=== PATIENT | female | born 1980 | race Caucasian/White ===

== ENCOUNTER → 2018-08-13 12:29 | Outpatient (CLI) | payer OTHER, MEDICAID, SELFPAY ==
--- NOTE | 2018-08-13 12:32 | BI_ITS ---
MAMMOGRAPHY - BILATERAL SCREENING REASON FOR EXAM: Female, 38 years old. Routine annual screening examination. PERTINENT HISTORY: Grandmother with breast cancer. TECHNIQUE: Digital bilateral breast anai (3D mammographic acquisition) in the CC and MLO projections. 2-D mediolateral oblique (MLO) and craniocaudad (CC) views of both breasts were obtained. CAD: Full Field Digital Mammography with Computer Added Detection was performed. COMPARISON: Comparison is made with prior study dated April 17, 2016 and July 31, 2017. FINDINGS: Breast Composition: There are scattered areas of fibroglandular density. There are no dominant masses or suspicious calcifications. Stable asymmetric breast tissue where more breast tissue is seen in the upper outer quadrant of the right breast as compared to the left side. No other significant abnormalities are identified. There has been no significant change since the prior study. BI/SCREENING MAMM (CAD), BILAT IMPRESSION: Stable bilateral screening mammogram. Yearly follow-up mammogram recommended. (A) ASSESSMENT CATEGORY: BIRADS Category 2: Benign. A letter regarding these results will be sent to the patient by the facility within 30 days. Approximately 10% of breast cancers are not detected by mammography. A normal mammogram should not delay biopsy of a clinically suspicious abnormality. [id number] Electronically Signed: Micheal Garner MD at 12:50 EDT Tel [phone], Service support ,
== END ==
PROVIDERS: Family Provider Internal Medicine; PCP Internal Medicine; Visit Provider Obstetrics & Gynecology
DX: Z12.31 Encounter for screening mammogram for malignant neoplasm of breast (principal)
CPT/HCPCS: 77063; 77067

== ENCOUNTER → 2018-09-08 13:14 | Outpatient (CLI) | payer OTHER, MEDICAID, SELFPAY | PROVIDERS: Family Provider Internal Medicine; PCP Internal Medicine; Referring Provider Nurse Practitioner Primary Care; Visit Provider Nurse Practitioner Primary Care | DX: R00.2 Palpitations (principal) | CPT/HCPCS: 93225; 93226 ==

== ENCOUNTER → 2019-09-23 11:46 | Outpatient (CLI) | payer OTHER, SELFPAY ==
--- NOTE | 2019-09-23 11:49 | BI_ITS ---
MAMMOGRAPHY - BILATERAL SCREENING REASON FOR EXAM: Female, 39 years old. Routine annual screening examination. PERTINENT HISTORY: Grandmother with breast cancer. TECHNIQUE: Digital bilateral breast omega (3D mammographic acquisition) in the CC and MLO projections. 2-D mediolateral oblique (MLO) and craniocaudad (CC) views of both breasts were obtained. CAD: Full Field Digital Mammography with Computer Added Detection was performed. COMPARISON: Comparison is made with prior examination of August 13, 2018 and July 31, 2017. FINDINGS: Breast Composition: There are scattered areas of fibroglandular density. There are no dominant masses or suspicious calcifications. Stable appearance of the bilateral axillary lymph nodes. No other significant abnormalities are identified. There has been no significant change since the prior study. BI/SCREEN MAMM (CAD) W/OMEGA BILAT IMPRESSION: Stable bilateral screening mammogram. Yearly follow-up mammogram recommended. (A) ASSESSMENT CATEGORY: BIRADS Category 2: Benign. A letter regarding these results will be sent to the patient by the facility within 30 days. Approximately 10% of breast cancers are not detected by mammography. A normal mammogram should not delay biopsy of a clinically suspicious abnormality. [id number] Electronically Signed: Micheal Garner, at 13:08 EDT , Service support ,
== END ==
PROVIDERS: Family Provider Internal Medicine; PCP Internal Medicine; Referring Provider Obstetrics & Gynecology; Visit Provider Obstetrics & Gynecology
DX: Z12.31 Encounter for screening mammogram for malignant neoplasm of breast (principal)
CPT/HCPCS: 77063; 77067

== ENCOUNTER → 2019-10-07 12:14 | Outpatient (CLI) | payer OTHER, SELFPAY ==
[2019-10-07 14:31] LABS: Hematocrit 41.9 % (37-47); Hemoglobin 13.7 g/dL (12.0-15.0); Mean Corp Hgb Conc 32.7 g/dL (32-36); Mean Corpuscular Hgb 30.4 pg (27.0-32.0); Mean Corpuscular Volume 93.1 fL (81-99); Mean Platelet Vol. 9.9 fl (6.2-12.0); Platelet Count 304 K/mm3 (150-450); RBC Distribution Width SD 44.4 fl (35.1-43.9)
[2019-10-07 14:38] LABS: ALB/GLOB Ratio 0.9 RATIO (0.9-2.4); AST(SGOT) 11 U/L (15-37); Alanine Aminotransfer ALT/SGPT 22 U/L (13-56); Albumin, Serum 3.6 g/dL (3.2-5.0); Alkaline Phosphatase 53 U/L (45-117); Anion Gap 5 (5-15); BUN 11 mg/dL (7-18); BUN/Creat Ratio 12.9 RATIO (10-20); Chloride 107 mmol/L (98-107); Creatinine, Serum 0.85 mg/dL (0.55-1.02); EST Glomerular Filtration Rate 79 mL/min (>60); Est Glom Filt Rate - Afr Amer 95 mL/min (>60); Follicle Stimulating Hormone 8.4 mIU/mL; Globulin 3.8 g/dL (2.2-4.2); Glucose 73 mg/dL (74-106); Potassium 3.7 mmol/L (3.5-5.1); Protein, Total 7.4 g/dL (6.4-8.2); Sodium Level 138 mmol/L (136-145); T4 Free Direct 0.98 ng/dL (0.76-1.46); Thyroid Stim Hormone (TSH) 0.78 uIU/mL (0.358-3.74)
[2019-10-10 20:07] LABS: Testosterone, Total 14 ng/dL (8-48)
[2019-10-10 20:25] LABS: Testosterone, % Free 1.45 % (0.50-2.80)
== END ==
PROVIDERS: Visit Provider Obstetrics & Gynecology
DX: R63.5 Abnormal weight gain (principal); L65.9 Nonscarring hair loss, unspecified; N95.9 Unspecified menopausal and perimenopausal disorder
CPT/HCPCS: 36415; 80053; 83001; 84402; 84403; 84439; 84443; 85027

== ENCOUNTER → 2020-10-24 13:52 | Outpatient (CLI) | payer OTHER, SELFPAY ==
--- NOTE | 2020-10-24 13:55 | BI_ITS ---
MAMMOGRAPHY - BILATERAL SCREENING REASON FOR EXAM: Female, 40 years old. Routine annual screening examination. PERTINENT HISTORY: Screening TECHNIQUE: Digital bilateral breast omega (3D mammographic acquisition) in the CC and MLO projections. 2-D mediolateral oblique (MLO) and craniocaudad (CC) views of both breasts were obtained. CAD: Full Field Digital Mammography with Computer Added Detection was performed. COMPARISON: Previous mammogram obtained on 09/23/2019 FINDINGS: Breast Composition: Scattered There are no dominant masses or suspicious calcifications. No other significant abnormalities are identified. BI/SCREEN MAMM (CAD) W/OMEGA BILAT IMPRESSION: Stable bilateral screening mammogram. Yearly follow-up mammogram recommended. (A) ASSESSMENT CATEGORY: BIRADS Category 1: Negative. A letter regarding these results will be sent to the patient by the facility within 30 days. Approximately 10% of breast cancers are not detected by mammography. A normal mammogram should not delay biopsy of a clinically suspicious abnormality. [id number] Electronically Signed: Abe Chavarria, at 14:51 EST Tel , Service support ,
== END ==
PROVIDERS: Referring Provider Obstetrics & Gynecology; Visit Provider Obstetrics & Gynecology
DX: Z12.31 Encounter for screening mammogram for malignant neoplasm of breast (principal)
CPT/HCPCS: 77063; 77067

== ENCOUNTER 2021-03-06 06:59 | Day surgery (SDC) | payer OTHER, SELFPAY ==
[2021-02-23 17:28] LABS: Hematocrit 37.7 % (37-47); Hemoglobin 12.5 g/dL (12.0-15.0); Mean Corp Hgb Conc 33.2 g/dL (32-36); Mean Corpuscular Hgb 31.3 pg (27.0-32.0); Mean Corpuscular Volume 94.5 fL (81-99); Mean Platelet Vol. 9.2 fl (6.2-12.0); Platelet Count 325 K/mm3 (150-450); RBC Distribution Width CV 12.5 % (11.6-14.6); RBC Distribution Width SD 43.3 fl (35.1-43.9); Red Blood Count 3.99 M/mm3 (4.2-5.4); White Blood Count 6.6 K/mm3 (4.4-11.0)
[2021-02-23 17:58] LABS: Partial Thromboplast Time 32.7 Seconds (24.1-36.2); Prothrombin Time (Protime)PT. 12.3 SECONDS (11.7-14.9)
[2021-02-23 18:10] LABS: Creatinine, Serum 0.82 mg/dL (0.55-1.02); EST Glomerular Filtration Rate 81 mL/min (>60); Est Glom Filt Rate - Afr Amer 98 mL/min (>60)
[2021-02-24 14:43] LABS: Hemoglobin A1c 4.9 % (3.8-5.6)
[2021-02-24 14:45] LABS: Thyroid Stim Hormone (TSH) 1.53 uIU/mL (0.358-3.74)
--- NOTE | 2021-03-05 10:53 | HP.PCM_ITS ---
History and Physical Date of Admission: 03/06/21 Surgical History and Physical Leda Whyte, a 40 year old female 3 0 2 0 3, presents for L/S BSO on March 06, 2021 at 8:45. -- Recurrent Ruptured Ovarian Cysts s/p LAVH -- Has had multiple episodes of ruptured cysts and just wants them to stop; prior LAVH in 2010. MEDICATIONS HISTORY: Current medications prescribed by our practice are: 1. Nexium 20 mg capsule,delayed release, One pill by mouth twice a day Patient is also takin. Claritin 10 mg tablet, QD 2. multivitamin capsule, QD 3. Proventil HFA 90 mcg/actuation HFA Aerosol Inhaler, PRN 4. buspirone 30 mg tablet, tid 5. levothyroxine 25 mcg tablet, daily 6. tizanidine 2 mg tablet, One pill by mouth once a day 7. Aimovig Autoinjector 140 mg/mL subcutaneous auto-injector, As Directed once monthly 8. Effexor XR 150 mg capsule,extended release, Two pills by mouth once a day 9. gabapentin 800 mg tablet, One pill by mouth once a day at hs 10. Victoza 2-Loc 0.6 mg/0.1 mL (18 mg/3 mL) subcutaneous pen injector, As Directed once daily ALLERGIES: Betadine, Rash, Sulfonamides, Rash, Compazine, Toungue swelling, Betadine, Rash, Compazine, Toungue swelling, Sulfa (Sulfonamide Antibiotics), Rash, Pneumovax 23 and Fever Infections - Chicken pox Illnesses - HX OF MIGRAINES, hypoglycemia, Reynauds disease, IBS, Chronic back pain, sleep apnea and reflux Accidents - no injuries of consequence Hospitalizations - Childbirth slipped disk on pain relievers, anxiety/depression. Seasonal allergies and Asthma; Review of Systems: GENERAL - Denies fever, or chills SKIN - Denies skin changes EYES - Denies visual changes EARS - Denies difficulty hearing NOSE - Denies nasal congestion or bleeding MOUTH - Denies sore throat or difficulty swallowing NECK - Denies pain or swelling RESPIRATORY - Denies shortness of breath or wheezing CARDIOVASCULAR - Denies palpitations or chest pain GASTROINTESTINAL - Denies nausea, vomiting, diarrhea, constipation GENITOURINARY - Denies dysuria, frequency of urination, incontinence of urine MUSCULOSKELETAL - Denies joint or muscle pain NEUROLOGICAL - Denies localized numbness or weakness PSYCHIATRIC - Denies depression or anxiety ENDOCRINE - Denies heat or cold intolerance, weight loss or gain HEMATO-IMMUNOLOGIC - Denies excesive bleeding with cuts SOCIAL HISTORY: Alcohol Use - denies drinking Smoking - denies smoking Diet - balanced Diet Lifestyle - Exercise - minimal Seat Belt Use - always Employer - [employer] 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 Thyroid disease, Fibroids and Hypertension. Maternal Grandmother: cancerous polyps removed from colon, Heart Disease and Hypertension. Maternal Grandfather: skin cancer; squamos cell CA, Heart Disease and Prostate cancer. MENSTRUAL HISTORY: LMP Known?- JORDY, LMP - 05/19/11, Age Onset Menarche - 12 PAST PREGNANCIES: Total Pregnancies - 5; Full Term Pregnancies - 3; Premature - 0; Abortions, Induced - 0; Abortions, Spontaneous - 2; Ectopics - 0; Multiple Births - 0; Living Children - 3 SURGICAL HISTORY: 1. 1998 laparoscopy and appendectomy 2. cholecystectomy, 10/13/09, ; Dr Loredo 3. 06/12/2011 [facility] ; Anisa Chow M.D. - fibroids on sono, irreg bleeding. PATH: no fibroids 4. 02/19/2012 bladder sling ; Dr. Montejo - incontinence 5. 1983 hernia repair 6. 1995 fissure surg PHYSICAL EXAM BP- 104/70 Sitting, Right arm, regular cuff Weight- 213.24790 lbs Height- 63 inch BMI:37.81 CONSTITUTIONAL - NAD, well nourished, and well developed SKIN - No rash, lesions, or ulcers HEENT - Normocephalic, PERRLA, EOMI NECK - No nodes, no nuchal rigidity and thyroid normal size and texture LYMPH NODES - Palpation of lymph nodes in neck and groins within normal limits LUNGS - CTA x2 without wheezes, crackles or rales CARDIAC - Regular rate and rhythm without rubs, murmurs, or gallops BREAST - No dominant masses, no tenderness, no axillary adenopathy, no nipple discharge, no skin changes ABDOMEN - Without hepatosplenomegaly, distention, masses, rebound, or guarding; normal bowel sounds; no hernias EXTREMITIES - No edema or calf tenderness NEUROLOGICAL - Cranial nerves II-XII grossly intact PSYCHIATRIC - A and O to time, place, person, mood and affect External Genitial Vagina - firm and well supported introitus. Urethra/Urethral Meatus - non-tender Bladder - non-tender Vagina - no palpable lesions Cervix - surgically absent Uterus - surgically absent Adnexa - normal, no tenderness and no masses ASSESSMENT/PLAN: 1. Other Ovarian Cyst Recurrent ruptured ovarian cysts. Concerned this cyst will rupture with subsequent severe pain. Discussed options for treatment including expectant management, hormonal mgt (eg OCPs) or proceeding with L/S BSO. Desires the surgery and discussed RBAs including possiblilty of laparotomy, residual ovary with cysts, and need for termite exterminator helper HRT. All questions answered.
[2021-03-06] VITALS (8 sets, daily range): BP systolic 104–135; BP diastolic 60–86; PULSE 76–104; RESP 16; TEMP 36.6–37.3; O2SAT 92–98; BMI 38.3
--- NOTE | 2021-03-06 | FALS_PTH ---
PATIENT: ASHLEE PATHAK LOC: [facility] [place] U#:[id number] AGE/SX: 40/F ROOM: RE03/06/[address]: Dr. Abe Uribe MD : [id number] BED: DIS: 03/06/2021 SPEC #: [id number] RECD: 03/06/21 11:20 STATUS: MAGDALENA RETriny #: [id number] BRIDGETT: 03/06/21 00:[address]: Abe Uribe DEPT: SURGICAL PATHOLOGY RECD BY: Chucho Wei ENTERED: 03/06/21 11:21 SP TYPE: FALL TUBES OTHR DR: Dr. Marifer Pedersen MD Tissues: Ovary, NOS Procedures: Surgery Specimen Level IV HEADER OPERATION: Laparoscopic salpingo-oophorectomy PRE-OP DIAGNOSIS: Recurrent ruptured ovarian cysts status post [facility] TISSUE SUBMITTED: Bilateral fallopian tubes and ovaries MICROSCOPIC DIAGNOSIS Bilateral fallopian tubes and ovaries, bilateral salpingo-oophorectomy: Bilateral ovaries - physiologic follicular and hemorrhagic corpus luteal cysts. Bilateral fallopian tubes - no pathologic diagnosis. SJ:rg 03/07/2021 MICROSCOPIC DESCRIPTION Slides are reviewed. GROSS DESCRIPTION Received in fixative is one container labeled with the patient's name and designated bilateral fallopian tubes and ovaries. The specimen consists of bilateral fallopian tubes and ovaries in multiple pieces. One of the fallopian tubes measures 4 cm in length and 0.6 cm in diameter. The fimbrial end is identified. Sections reveal unremarkable cut surfaces. One of the separate ovaries measure 2.5 x 1.5 x 1 cm. Sections reveal a few minute cysts filled with clear fluid measuring 0.3 cm in greatest dimension. The second fallopian tube measures 3 cm in length and 0.5 cm in diameter. The detached portion of the fallopian tube with fimbrial end is also noted measuring 2 cm in length and 0.5 cm in diameter. Sections reveal unremarkable cut surfaces. The second ovary appears to be present in multiple pieces. The largest portion is attached to one of the fallopian tubes which measures 3 x 2 x 1 cm. The smaller multiple detached pieces of ovary measure 3 x 2 x 0.5 cm. Some of the fragments show hemorrhagic corpus luteum. Sections of the intermediate sized piece shows cysts filled with clear fluid. The largest cyst measures 0.5 cm in greatest dimension. Senior Technical Business Analyst sections are submitted in six cassettes as follows: 1 - one fallopian tube, 2 & 3 - one ovary, 4 - second fallopian tube received in two pieces, 5 & 6??second ovary received in multiple pieces. / BING:roni 03/06/21 TC:5 CPT: 70587 x2
--- NOTE | 2021-03-06 07:08 | EKG12_ITS ---
Test Reason : PRE-OP Blood Pressure : / mmHG Vent. Rate : 078 BPM Atrial Rate : 078 BPM P-R Int : 148 ms QRS Dur : 090 ms QT Int : 396 ms P-R-T Axes : 065 045 036 degrees QTc Int : 451 ms Normal sinus rhythm Nonspecific T wave abnormality Abnormal ECG No previous ECGs available Confirmed by LINN HAHN, NERI ([id number]), assistant film editor NICCI COLE ([id number]) on 03/10/2021 3:04:16 PM Referred By: Abe Uribe Confirmed By:PAIGE ESTEVES MD
[2021-03-06] MEDS: Lactated Ringers 1,000 ML 100 ML IV ×2 (07:49→10:36)
[2021-03-06] MEDS: Cefotetan 2 GM in 0.9% NS 100 ML IV (08:51)
[2021-03-06] MEDS: Ropivacaine 0.5% 30 ML Vial (09:12)
--- NOTE | 2021-03-06 10:00 | OP.PCM_ITS ---
Report of Operation Date of Procedure: 03/06/21 Pre-Operative Diagnosis: Recurrent Ovarian Cysts Post-Operative Diagnosis: Recurrent Ovarian Cyst, Adhesions Surgery/Procedure Performed:: Laparoscopic Bilateral Salpingo-Oophorectomy and Lysis of Adhesions Description of Surgical Findings:: Normal-appearing right and left ovaries with absent uterus. Ovaries densely adhered to sidewalls and rectosigmoid colon. exhibition designer: Aram Vasquez Type of Anesthesia:: General - Endotracheal Anesthesiologist: Mikie Varghese Specimen's removed: Bilateral fallopian tubes and ovaries Estimated Blood Loss (mL): Minimal Fluids Replaced: Crystalloid Description of Procedure: Surgeon: Abe Uribe MD, FACOG Indications: This is a 40 year old patient who has had problems with recurrent ovarian cysts. She had a hysterectomy in approximately 2010. Despite multiple treatments and visits to the emergency room she continues to have ovarian cysts which cause severe pain every few months which disables her. Given this she just desires that her ovaries be removed. She understands that after this procedure that she will need to be on hormone replacement therapy for an indefinite period of time. She also understands the risk and indications of the procedure including the possibility of bleeding, infection, and injury to surrounding structures such as bowel bladder requiring laparotomy. She also understands that remnants of the ovaries may be left in place which could in the future because the same symptoms. All questions were answered. Procedure: The patient was taken to the operating room where after induction of general anesthesia, she was placed in the dorsolithotomy position and prepped and draped in the usual sterile fashion. The bladder was drained of approximately 250 cc of clear yellow urine with a catheter. A sponge stick was placed in the vagina. Approximately 30 cc of half percent ropivacaine was injected meters above the umbilicus, suprapubically and midway between. A 5 mm bladeless trocar was placed supraumbilically and intraperitoneal placement confirmed. After CO2 insufflation was complete, a 5 mm bladeless trocar was introduced suprapubically. This was eventually converted to a 10/12 mm bladeless trocar. The above findings were noted. A 5 mm bladeless port was then placed midway between these 2 ports for manipulation. The infundibulopelvic ligaments were ligated on each side after taking down adhesions both sharply with scissors and bluntly. The ovaries and tubes were removed through the lower 10/12 mm port without difficulty. The pelvis was copiously irrigated with the suction curette removing all clots. Verónica was placed across portions of the rectosigmoid and the vaginal cuff to help with some oozing. Laparoscopic instruments with as much CO2 gas as possible were removed and incisions were closed with interrupted 4-0 Monocryl suture. Steri-Strips placed across the incisions. Vaginal instruments were removed. The patient tolerated the procedure well was taken to recovery room in satisfactory condition and sponge instrument and needle counts were all reportedly correct. Estimated blood loss for the case was minimal. Cefotetan 2 g IV was given prior to beginning the operative procedure. There were no apparent complications of the surgery. Specimens to pathology was bilateral tubes and ovaries Grafts/Implants Used: None - Complications None - Admit VTE Documentation VTE Present on Admission: Yes VTE Mechan Device Prophylaxis: SCD's
--- NOTE | 2021-03-06 10:11 | DCINST_ITS ---
Discharge Diet: No Restrictions - Increase fluid intake for the next 48 hours. Discharge Activity: Return to Normal Activity, May Drive - when you are no longer taking pain/narcotic medicines., May Shower, May Take a Tub Bath May resume sexual activity in: 3 weeks Additional Activity Instructions:: Ambulate often the next week after surgery. Nothing in the vagina for 5 days. Call your doctor if your incision/area has: Continuous Slow Oozing, Sudden Increased Bleeding, Increased Pain/ Swelling, Increased Redness, Foul Smelling Discharge Call your doctor if you observe: Fever of 101 or Higher, Inability to urinate, Inability to have a bowel movement, Using more than one pad per hour Allergies/Adverse Reactions: Allergies povidone-iodine [From Betadine] Allergy (Verified 03/06/21 07:26) Rash prochlorperazine [From Compazine] Allergy (Verified 03/06/21 07:26) Swelling prochlorperazine edisylate [From Compazine] Allergy (Verified 03/06/21 07:26) Swelling prochlorperazine maleate [From Compazine] Allergy (Verified 03/06/21 07:26) Swelling soap [From Betadine] Allergy (Verified 03/06/21 07:26) Rash Sulfa (Sulfonamide Antibiotics) Allergy (Verified 03/06/21 07:26) Rash Medications to take at Discharge Gabapentin [Neurontin] 800 mg PO QHS 10/24/15 Venlafaxine XR [Effexor Xr] 300 mg PO DAILY 10/24/15 traZODone [Desyrel] 200 mg PO QHS 10/24/15 Cetirizine HCl [Zyrtec] 10 mg PO DAILY 10/12/16 Buspirone HCl 5 mg PO TID 10/19/16 Albuterol IH (ProAir) [Proair Hfa (SP)Vent Pts] 1 puff INHALATION Q6H PRN PRN 02/24/21 Diazepam [Valium] 5 mg PO PRN PRN 02/24/21 Erenumab-Aooe [Aimovig Autoinjector] 140 mg SQ QMONTH 02/24/21 Esomeprazole Mag Trihydrate [Nexium] 40 mg PO BID 02/24/21 Indomethacin 25 mg PO PRN PRN 02/24/21 Levothyroxine Sodium [Synthroid] 25 mcg PO DAILY 02/24/21 Liraglutide [Victoza] 1.8 mg SQ DAILY 02/24/21 Lubiprostone [Amitiza] 24 mcg PO BID 02/24/21 Meloxicam [Mobic] 15 mg PO DAILY 02/24/21 Milnacipran HCl [Savella] 50 mg PO QHS 02/24/21 Sucralfate [Carafate] 1 gm PO 4X/DAY 02/24/21 Tizanidine HCl [Zanaflex] 2 mg PO QHS 02/24/21 Ubrogepant [Ubrelvy] 100 mg PO PRN PRN 02/24/21 Estradiol 1 mg PO DAILY #100 tablet 03/06/21 Oxycodone [Oxyir] 5 mg PO Q6H PRN PRN 7 Days #10 tablet 03/06/21 The following prescriptions were given: Estradiol 1 mg PO DAILY #100 tablet Transmission Status: Pending to [facility] Oxycodone [Oxyir] 5 mg PO Q6H PRN PRN 7 Days #10 tablet PRN Reason: Pain Score 6-10 Transmission Status: Sent to [facility] Primary Care Physician: Marifer Pedersen MD [Primary Care Provider] - Test Results: Test results from this visit will be discussed in further detail at your follow- up appointment, if applicable. Please Follow Up With: Abe Uribe MD - [phone] When: 2 to 3 weeks
[2021-03-06 11:25] LABS: Bedside Glucose 80 mg/dL (70-110)
[2021-03-06] MEDS: oxyCODONE 5 MG Tablet PO (11:46)
== END 2021-03-06 12:51 | disposition home or self-care (01) ==
LOC: SDC 07:02 → AC 07:02
PROVIDERS: Anesthesiology; PCP Internal Medicine; Referring Provider Obstetrics & Gynecology; Visit Provider Obstetrics & Gynecology
PROC: (CPT 58661; principal; 2021-03-06 08:25)
DX: N83.02 Follicular cyst of left ovary (principal); N83.01 Follicular cyst of right ovary; N83.12 Corpus luteum cyst of left ovary; N83.11 Corpus luteum cyst of right ovary; I73.00 Raynaud's syndrome without gangrene; K58.9 Irritable bowel syndrome, unspecified; K21.9 Gastro-esophageal reflux disease without esophagitis; G43.909 Migraine, unspecified, not intractable, without status migrainosus; G47.30 Sleep apnea, unspecified; F32.9 Major depressive disorder, single episode, unspecified; F41.9 Anxiety disorder, unspecified; J45.909 Unspecified asthma, uncomplicated; Z79.899 Other long term (current) drug therapy
CPT/HCPCS: 00840; 58661; 36415; 82565; 82962; 83036; 84443; 85027; 85610; 85730; 86850; 86900; 86901; 87426; 88305; 93005; J7120; C1760; J2405

== ENCOUNTER → 2021-09-13 | Outpatient (CLI) | payer OTHER, SELFPAY | END | disposition home or self-care (01) | LOC: LABSPEC 14:58 | PROVIDERS: PCP Internal Medicine; Referring Provider Otolaryngology Otolaryngology/Facial Plastic Surgery; Visit Provider Otolaryngology Otolaryngology/Facial Plastic Surgery | DX: J34.81 Nasal mucositis (ulcerative) (principal) | CPT/HCPCS: 87070; 87077; 87186; 87205 ==

== ENCOUNTER → 2022-04-10 | Outpatient (CLI) | payer BC, SELFPAY ==
--- NOTE | 2022-04-10 14:25 | BI_ITS ---
MAMMOGRAPHY - BILATERAL SCREENING REASON FOR EXAM: Female, 41 years old. Routine annual screening examination. PERTINENT HISTORY: Non-contributory. TECHNIQUE: Digital bilateral breast omega (3D mammographic acquisition) in the CC and MLO projections. 2-D mediolateral oblique (MLO) and craniocaudad (CC) views of both breasts were obtained. CAD: Full Field Digital Mammography with Computer Added Detection was performed. COMPARISON: Comparison is made with prior study dated 10/24/2020 and 09/23/2019. FINDINGS: Breast Composition: There are scattered areas of fibroglandular density. There are no dominant masses or suspicious calcifications. No other significant abnormalities are identified. There has been no significant change since the prior study. BI/SCRN MAMM (CAD)W/OMEGA BILAT IMPRESSION: Stable bilateral screening mammogram. Yearly follow-up mammogram recommended. (A) ASSESSMENT CATEGORY: BIRADS Category 1: Negative. A letter regarding these results will be sent to the patient by the facility within 30 days. Approximately 10% of breast cancers are not detected by mammography. A normal mammogram should not delay biopsy of a clinically suspicious abnormality. [id number] Electronically Signed: Micheal Garner MD at 15:16 EDT ,
== END | disposition home or self-care (01) ==
LOC: OPBI 14:22
PROVIDERS: PCP Family Medicine Sports Medicine; Referring Provider Obstetrics & Gynecology; Visit Provider Obstetrics & Gynecology
DX: Z12.31 Encounter for screening mammogram for malignant neoplasm of breast (principal)
CPT/HCPCS: 77063; 77067